=== PATIENT | female | born 1950 | race Caucasian/White ===

== ENCOUNTER → 2023-09-04 11:11 | Outpatient (REF) | payer MEDICARE, OTHER, SELFPAY ==
[2023-09-04 12:05] LABS: % Basophils 0.6 % (0-2); % Eosinophils 3.1 % (0-6); % Immature Granulocytes 0.3 % (0-0.5); % Lymphocytes 30.6 % (20.5-51.1); % Monocytes 10.1 % (1.7-9.3); % Neutrophils 55.3 % (42.2-75.2); Absolute Eosinophils 0.2 10^3/uL (0-0.7); Absolute Lymphocytes 2.2 10^3/uL (1.2-3.4); Absolute Monocytes 0.7 10^3/uL (0.1-0.6); Hematocrit 34.6 % (37.0-47.0); Hemoglobin 11.2 g/dL (12.0-16.0); Mean Corp Hgb Conc. 32.4 g/dL (33.0-37.0); Mean Corpuscular Hgb 28.4 pg (27.0-31.0); Mean Corpuscular Volume 87.8 fL (81.0-99.0); Mean Platelet Volume 8.5 fL (7.4-10.4); Nucleated Red Blood Cells % 0 %; Platelet Count 329 10^3/uL (130-400); Red Blood Cell Count 3.94 10^6/uL (4.20-5.40); Red Cell Dist. Width 15.2 % (11.5-14.5); White Blood Cell Count 7.1 10^3/uL (4.8-10.8)
[2023-09-04 13:19] LABS: ALT (SGPT) 22 U/L (0-35); AST (SGOT) 28 U/L (14-36); Albumin 3.7 g/dl (3.5-5.0); Alkaline Phosphatase 51 U/L (38-126); Blood Urea Nitrogen 30 mg/dl (7-17); Calcium 9.4 mg/dl (8.4-10.2); Carbon Dioxide 31 mmol/L (22-30); Chloride 103 mmol/L (98-107); Glucose 86 mg/dl (70-99); Potassium 4.4 mmol/L (3.5-5.1); Sodium 136 mmol/L (135-145); Total Bilirubin 0.4 mg/dl (0.2-1.3); Total Protein 6.2 g/dl (6.3-8.2); eGFR > 60.00
== END ==
LOC: SDSPAT 11:11
PROVIDERS: ATTENDING PHYSICIAN Internal Medicine Cardiovascular Disease; FAMILY PHYSICIAN Family Medicine; OTHER PHYSICIAN Internal Medicine Cardiovascular Disease
DX: R06.00 Dyspnea, unspecified (principal); Z01.818 Encounter for other preprocedural examination
CPT/HCPCS: 36415; 80053; 85025

== ENCOUNTER 2023-09-09 05:53 | Day surgery (SDC) | payer MEDICARE, OTHER, SELFPAY ==
[2023-09-05 06:38] VITALS: BMI 29.3
[2023-09-09 06:17] VITALS: BMI 29.3
[2023-09-09 06:19] VITALS: BP 185/77
[2023-09-09] MEDS: NSS 239 ML IV (06:30)
[2023-09-09 08:36] VITALS: BP 162/67
--- NOTE | 2023-09-09 08:39 | ITS.CL.CATH ---
Hospice Consultant - Catheterization
Cardiac Catheterization
Procedure Report:
CARDIAC CATHETERIZATION REPORT
Date of Procedure: 09/09/2023
Referring: Marija Elena M.D.
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
PROCEDURE:
1. Left heart catheterization.
2. Coronary angiography.
ACCESS:
6 Swazi right radial artery.
CATHETERS:
1. 5 Swazi JR4.
2. 5 Swazi JL 3.5.
HEMODYNAMIC DATA
Weight (kg): 79.8
AO (s/d/x, mmHg): 159/70/110
LV (s/x mmHg): 159/15 (A wave to 23)
LEFT VENTRICULOGRAPHY: Not performed.
CORONARY ANGIOGRAPHY
Dominance: Right.
Left Main: Normal size, bifurcating vessel. There is no coronary artery disease.
LAD: Normal size vessel giving rise to 1 significant diagonal. There is a calcified, 20% lesion in the mid vessel, after the origin of the first diagonal. The terminal vessel is severely tortuous.
Ramus: Congenitally absent.
Circumflex: Normal size vessel giving rise to 1 significant marginal. There is no coronary artery disease. The obtuse marginal is severely tortuous.
RCA: Normal size, dominant vessel with a significant posterolateral branch. There is no coronary artery disease. The true RPDA is a small, 1 mm vessel that supplies the proximal inferior interventricular septum. The distal inferior septum is
supplied by branches extending from the right ventricular marginal.
INTERVENTION(S)
None.
Closure Device: Vascular band.
Radiation (mGy): 213.34
DAP (cm2.Gy): 13.6228
Fluoroscopy time (minutes): 2.0
Sedation time (minutes): 22
CONCLUSIONS
1. Right dominant circulation with a 20%, calcified mid LAD lesion but no occlusive coronary artery disease.
2. Mildly elevated filling pressures (LVEDP = 15 mmHg at 79.8 kg) with evidence of diastolic dysfunction (A wave to 23 mmHg).
3. Significant EKG changes with coronary injection, possibly suggestive of endothelial dysfunction.
RECOMMENDATIONS:
1. Expectant management after cardiac catheterization via right radial approach.
2. Limited weight bearing on the right wrist for one week.
3. Continue primary preventative measures. Consider high-dose, high potency statin given the presence of calcified atherosclerosis in the mid LAD.
4. Consider addition of calcium channel blockers and SGLT2 inhibitors for possible endothelial dysfunction/diastolic dysfunction.
Copy to: Marija Elena M.D., Leeann Yeboah DLoc.
Nicanor Jamison DO, FACC, FACP
[2023-09-09] MEDS: NSS 1000 IV (08:51)
[2023-09-09 08:53] VITALS: BP 149/90
[2023-09-09 09:08] VITALS: BP 158/67
[2023-09-09 10:27] VITALS: BP 128/71
[2023-09-09 10:52] VITALS: BP 141/62
== END 2023-09-09 11:31 | disposition home or self-care (01) ==
LOC: CATH 05:53
PROVIDERS: ATTENDING PHYSICIAN Internal Medicine Cardiovascular Disease; FAMILY PHYSICIAN Family Medicine; OTHER PHYSICIAN Internal Medicine Cardiovascular Disease
DX: D86.89 Sarcoidosis of other sites (principal); I25.10 Atherosclerotic heart disease of native coronary artery without angina pectoris; R94.31 Abnormal electrocardiogram [ECG] [EKG]; Z79.82 Long term (current) use of aspirin
CPT/HCPCS: 93458; C1894; Q9967

== ENCOUNTER → 2023-10-11 11:19 | Outpatient (REF) | payer MEDICARE, OTHER, SELFPAY | LOC: RAD 11:19 | PROVIDERS: ATTENDING PHYSICIAN Internal Medicine Critical Care Medicine | DX: D86.9 Sarcoidosis, unspecified (principal) | CPT/HCPCS: 71250 ==

== ENCOUNTER → 2023-10-15 08:45 | Outpatient (REF) | payer MEDICARE, OTHER, SELFPAY | LOC: PAVMRI 08:45 | PROVIDERS: ATTENDING PHYSICIAN Internal Medicine Cardiovascular Disease; FAMILY PHYSICIAN Family Medicine | DX: D86.85 Sarcoid myocarditis (principal) | CPT/HCPCS: 75561; 75565; A9585 ==

== ENCOUNTER → 2023-11-06 11:41 | Outpatient (REF) | payer MEDICARE, OTHER, SELFPAY | LOC: RAD 11:41 | PROVIDERS: ATTENDING PHYSICIAN Internal Medicine Rheumatology; FAMILY PHYSICIAN Family Medicine | DX: M81.0 Age-related osteoporosis without current pathological fracture (principal); R16.1 Splenomegaly, not elsewhere classified; R29.890 Loss of height | CPT/HCPCS: 72072 ==

== ENCOUNTER → 2023-11-08 13:28 | Outpatient (REF) | payer MEDICARE, OTHER, SELFPAY | LOC: RAD 13:28 | PROVIDERS: ATTENDING PHYSICIAN Internal Medicine Rheumatology; FAMILY PHYSICIAN Family Medicine | DX: R16.1 Splenomegaly, not elsewhere classified (principal); R29.890 Loss of height | CPT/HCPCS: 76700 ==

== ENCOUNTER → 2024-01-14 10:10 | Outpatient (REF) | payer MEDICARE, OTHER, SELFPAY | LOC: RAD 10:10 | PROVIDERS: ATTENDING PHYSICIAN Internal Medicine Rheumatology; FAMILY PHYSICIAN Family Medicine | DX: M81.0 Age-related osteoporosis without current pathological fracture (principal) | CPT/HCPCS: 77080 ==

== ENCOUNTER → 2024-01-27 09:32 | Outpatient (REF) | payer MEDICARE, OTHER, SELFPAY ==
[2024-01-27 10:31] LABS: % Basophils 0.5 % (0-2); % Eosinophils 1.7 % (0-6); % Immature Granulocytes 1.1 % (0-0.5); % Lymphocytes 20.7 % (20.5-51.1); % Monocytes 7.5 % (1.7-9.3); % Neutrophils 68.5 % (42.2-75.2); Absolute Basophils 0.1 10^3/uL (0-0.2); Absolute Eosinophils 0.2 10^3/uL (0-0.7); Absolute Immature Granulocytes 0.2 10^3/uL (0-0.05); Absolute Lymphocytes 2.9 10^3/uL (1.2-3.4); Absolute Neutrophils 9.5 10^3/uL (1.4-6.5); Hemoglobin 11.4 g/dL (12.0-16.0); Mean Corp Hgb Conc. 32.6 g/dL (33.0-37.0); Mean Corpuscular Hgb 28.4 pg (27.0-31.0); Mean Corpuscular Volume 87.1 fL (81.0-99.0); Mean Platelet Volume 8.1 fL (7.4-10.4); Nucleated Red Blood Cells % 0 %; Platelet Count 384 10^3/uL (130-400); Red Blood Cell Count 4.02 10^6/uL (4.20-5.40); Red Cell Dist. Width 16.2 % (11.5-14.5); White Blood Cell Count 13.9 10^3/uL (4.8-10.8)
[2024-01-27 10:55] LABS: ALT (SGPT) 24 U/L (0-35); AST (SGOT) 24 U/L (14-36); Albumin 3.9 g/dl (3.5-5.0); Alkaline Phosphatase 50 U/L (38-126); Blood Urea Nitrogen 22 mg/dl (7-17); Calcium 10.4 mg/dl (8.4-10.2); Carbon Dioxide 31 mmol/L (22-30); Chloride 98 mmol/L (98-107); Glucose 105 mg/dl (70-99); Potassium 3.8 mmol/L (3.5-5.1); Sodium 136 mmol/L (135-145); Total Bilirubin 0.3 mg/dl (0.2-1.3); Total Protein 6.4 g/dl (6.3-8.2); eGFR 53.39
== END ==
LOC: SDSPAT 09:32
PROVIDERS: ATTENDING PHYSICIAN Internal Medicine Cardiovascular Disease; FAMILY PHYSICIAN Family Medicine
DX: Z01.818 Encounter for other preprocedural examination (principal); D86.85 Sarcoid myocarditis; R55 Syncope and collapse
CPT/HCPCS: 36415; 80053; 85025; 93005

== ENCOUNTER → 2024-02-03 11:32 | Outpatient (REF) | payer MEDICARE, OTHER, SELFPAY | LOC: RAD 11:32 | PROVIDERS: ATTENDING PHYSICIAN Otolaryngology; FAMILY PHYSICIAN Family Medicine | DX: J32.9 Chronic sinusitis, unspecified (principal) | CPT/HCPCS: 70486 ==

== ENCOUNTER 2024-02-21 08:36 | Day surgery (SDC) | payer MEDICARE, OTHER, SELFPAY ==
[2024-01-27 09:57] VITALS: BMI 29.9
[2024-02-21] VITALS (17 sets, daily range): BP systolic 108–150; BP diastolic 55–75
--- NOTE | 2024-02-21 12:21 | ITS.EPS ---
Credit Administration Specialist - EPS Report
EPS
Procedure Report:
Electrophysiology study:
Ms. 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
Date of the Procedure:
02/21/2024
Indications: Sarcoid Myocarditis and pre-syncope
Pre-Operative Diagnosis: Sarcoid Myocarditis and pre-syncope
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
Procedure Performed: EP study
Performing physician:
Marija Elena MD
Anesthesia:
See anesthesia records
Detailed Description of the Procedure:
Written informed consent was obtained from the patient after a full explanation of the risks and benefits of the procedure including the risks of sedation and anesthesia.
The patient was brought to the electrophysiology laboratory in stable condition in fasting state. Continuous electrocardiographic and hemodynamic monitoring was initiated. The initial rhythm was normal sinus.
The procedure site was meticulously prepared with surgical scrub and allowed to dry with no pooling. Sterile draping was applied to cover the procedure site. The image intensifier was draped with sterile bag and positioned over the patient.
After infusion of local anesthetic, vascular access was obtained under ultrasound guidance and sheaths were placed over guide wire as detailed below.
Sheaths:
��������� 6Fr sheath in right femoral vein
��������� 6Fr sheath in right femoral vein
Catheters:
��������� 6Fr - Debbie Quad-cath at RVa
��������� 6Fr -CRD Quad-cath at HIS and HRA
Baseline intervals (milliseconds):
PP interval (baseline cycle length): 860
P wave duration: 123
WA interval: 180
QRS duration:95
QT interval:403
P onset to AVJ: 45
AH interval: 86
His duration: 12
HV interval: 62
Q onset to RVa: 0
Sinus Node Function:
Burst pacing was performed from the right atrium at varying cycle lengths to measure the sinus node recovery time (SNRT) and corrected sinus node recovery time (cSNRT). The sinus node functions are within acceptable normal range.
Atrioventricular Ángela Function:
Atrial stimulation with incremental pacing intervals was performed from the high right atrium (HRA) and right ventricular apex (RVa) and antegrade and retrograde atrioventricular (AV) block cycle lengths were determined. The antegrade AV Wenckebach
was noted at 450 msec.
Programmed atrial stimulation was performed with drive train of 600 msec followed by a single atrial extra-stimulus and the AV ángela and the atrial ERPs were determined. The AV ángela ERP was 600/220 msec and the atrial ERP was <600/220 msec.
There was normal decremental conduction noted through the AV node. The programmed stimuli showed no evidence of dual pathways or echo beats.
Ventricular stimulation showed concentric, midline and decremental retrograde conduction through the AV node and retrograde AV ángela ERP was 600/210 msec with drive train of 600 msec.
The AV ángela functions are deemed within normal range and no sign of dual pathway noted.
Ventricular Function:
Single ventricular extrastimuli were delivered following drive train of 600 msec and 400 msec the ventricular ERP was determined 210 msec. The ventricular electrical functions are within acceptable range.
Arrhythmia Induction:
Programmed stimulation including single, double and triple extrastimuli were delivered from the RVa. The burst pacing from the RVa was also attempted. The RVa was paced as per MUSTT protocol with no sustained arrhythmia induced at drive train of 600
and then at 400 msec with S1, S2, S3 and S4. NSVT noted.
The catheter was moved to RVOT and the induction was again attempted with drive train of 600 msec and 400 msec with single, double and triple extrastimuli. There was no arrhythmia induced with aggressive induction maneuvers except some NSVT.
No sustained arrhythmia was inducible.
Procedure End
Following the completion of the EP study, catheters were removed. The sheaths were removed and hemostasis achieved with manual compression.
Estimated Blood loss:
<5 cc
Specimens Removed:
None.
Implants / Devices:
None
Urine output:
None
Packs / Drains/ Tubes:
None
Instrument / Sponge Count Correct:
Yes
Complications of the Procedure:
None
Condition of Patient at Time of Transfer:
Hemodynamically stable with no neurological or vascular compromise.
Summary:
Normal electrophysiology study with Isuprel and no ventricular arrhythmia noted. ILR recommended.
--- NOTE | 2024-02-21 12:30 | ITS.CL.IMPLP ---
[facility] Certified Concierge - Implant Loop
Implant Loop
Procedure Report:
Procedure: Insertion of Loop Recorder.�
Date of the procedure: 02/21/2024
Procedure Physician: Marija Elena MD [facility]
Indication: Sarcoid with pre-syncope and negative EPS
Description of the procedure:
Patient was brought to the holding area after informed consent was obtained from the patient. The time out was performed immediately before the procedure.
The left parasternal chest area was prepped and draped in sterile fashion with chlorhexidine prep x 3 times. Lidocaine 1% was injected subcutaneously for local anesthesia. The loop recorder was tunneled and then injected into the subcutaneous
tissue. The tunneling tool was removed leaving the loop recorder in place. The dermis was closed with steristrips and a pressure Tegaderm dressing was placed. There were no immediate complications.
Post procedure, the device was interrogated and showed good detectable P and R waves.
There were no immediate complications.
Device:
Kluster JOT; Model: [id number] Serial #:[id number]
R wave amplitude: 0.43 mV
Final Programming:
Tachycardia
��������������� AF Detection: 160 bpm for 6 min (changed from 145 bpm at 2 min due to patient condition)
��������������� Tachy EGM Trigger Priority: High
Detection Qualifiers:
-��������� Bigeminy Qualifier: On
-��������� Sudden onset: On
Bradycardia Detection: 30 bpm for 4 beats, Asystole for 6 seconds (changed from 3 seconds)
��������������� Atrial fibrillation detection: On
PVC counter - active.
Conclusion:
Successful insertion of loop recorder.
Recommendation:
Routine post-insertable loop care.
== END 2024-02-21 16:15 | disposition home or self-care (01) ==
LOC: CATH 08:36
PROVIDERS: ATTENDING PHYSICIAN Internal Medicine Cardiovascular Disease; FAMILY PHYSICIAN Family Medicine
DX: D86.85 Sarcoid myocarditis (principal); R55 Syncope and collapse; I47.20 Ventricular tachycardia, unspecified; Z86.79 Personal history of other diseases of the circulatory system; I10 Essential (primary) hypertension; I25.10 Atherosclerotic heart disease of native coronary artery without angina pectoris; J44.9 Chronic obstructive pulmonary disease, unspecified; I83.90 Asymptomatic varicose veins of unspecified lower extremity; R49.0 Dysphonia; K57.90 Diverticulosis of intestine, part unspecified, without perforation or abscess without bleeding; N28.9 Disorder of kidney and ureter, unspecified; K58.9 Irritable bowel syndrome, unspecified; M48.54XA Collapsed vertebra, not elsewhere classified, thoracic region, initial encounter for fracture; M19.90 Unspecified osteoarthritis, unspecified site; D64.9 Anemia, unspecified; H40.9 Unspecified glaucoma; H35.30 Unspecified macular degeneration; H04.123 Dry eye syndrome of bilateral lacrimal glands; M85.80 Other specified disorders of bone density and structure, unspecified site; Z79.52 Long term (current) use of systemic steroids; D72.829 Elevated white blood cell count, unspecified; Z87.891 Personal history of nicotine dependence; Z79.82 Long term (current) use of aspirin; Z79.899 Other long term (current) drug therapy
CPT/HCPCS: 93620; 33285; C1730; C1894; 76937; C1764

== ENCOUNTER → 2024-04-03 13:33 | Outpatient (REF) | payer MEDICARE, OTHER, SELFPAY | LOC: RAD 13:33 | PROVIDERS: ATTENDING PHYSICIAN Internal Medicine Critical Care Medicine; FAMILY PHYSICIAN Family Medicine | DX: D86.9 Sarcoidosis, unspecified (principal) | CPT/HCPCS: 71250 ==

== ENCOUNTER → 2024-09-25 15:17 | Outpatient (REF) | payer MEDICARE, OTHER, SELFPAY | LOC: RAD 15:17 | PROVIDERS: ATTENDING PHYSICIAN Internal Medicine Cardiovascular Disease; FAMILY PHYSICIAN Family Medicine; REFERRING PHYSICIAN Internal Medicine Rheumatology | DX: D86.85 Sarcoid myocarditis (principal); R55 Syncope and collapse | CPT/HCPCS: 93880 ==

== ENCOUNTER → 2024-10-16 08:08 | Outpatient (REF) | payer MEDICARE, OTHER, SELFPAY | LOC: HWRCS 08:08 | PROVIDERS: ATTENDING PHYSICIAN Internal Medicine Cardiovascular Disease; FAMILY PHYSICIAN Family Medicine | DX: D86.85 Sarcoid myocarditis (principal); R94.31 Abnormal electrocardiogram [ECG] [EKG] | CPT/HCPCS: 78452; 93017; A9500; J2785 ==

== ENCOUNTER → 2024-12-02 10:43 | Outpatient (REF) | payer MEDICARE, OTHER, SELFPAY | LOC: RAD 10:43 | PROVIDERS: ATTENDING PHYSICIAN Internal Medicine Rheumatology; FAMILY PHYSICIAN Family Medicine | DX: M81.0 Age-related osteoporosis without current pathological fracture (principal) | CPT/HCPCS: 72110 ==

== ENCOUNTER → 2025-04-30 08:30 | Outpatient (REF) | payer MEDICARE, OTHER, SELFPAY | LOC: RAD 08:30 | PROVIDERS: ATTENDING PHYSICIAN Internal Medicine Critical Care Medicine; FAMILY PHYSICIAN Family Medicine | DX: D86.9 Sarcoidosis, unspecified (principal) | CPT/HCPCS: 71250 ==